=== PATIENT | female | born 1995 | race Caucasian/White ===

== ENCOUNTER 2018-11-05 08:51 | Emergency (ER) | payer OTHER ==
[~2018-11-05] VITALS: Ht 170.2 cm; Wt 86.0 kg
[~2018-11-05 08:51] MED LIST: CEPH-443 PO; HYDR-4011 PO; IBUP-1542 PO; NAPR-985 PO; SULF1TAB31 PO
[2018-11-05 09:06] VITALS: Ht 170.2 cm; Wt 86.0 kg
[2018-11-05] MEDS ORDERED: LIDOCAINE 1% (MDV) 20 ML INJ SC ONE (09:30)
[2018-11-05 10:50] VITALS: BP 124/68; PULSE 72; RESP 18
== END 2018-11-05 10:50 | disposition home or self-care (01) ==
LOC: FTE 08:51
DX: Z48.01 Encounter for change or removal of surgical wound dressing (principal)
CPT/HCPCS: Z7502; Z7610; 99282